=== PATIENT | female | born 1950 | race Two or more races ===

== ENCOUNTER 2023-10-17 16:00 | Emergency (ER) | payer OTHER ==
[~2023-10-17] VITALS: Ht 167.6 cm; Wt 90.9 kg
[2023-10-17 16:01] VITALS: BP 0/0; PULSE 0; RESP 0; TEMP 88.4; O2SAT 0
== END 2023-10-17 16:25 ==
LOC: EDSEX 16:00 → EDBD 16:00 → ER 16:00
DX: I46.9 Cardiac arrest, cause unspecified (principal); J96.90 Respiratory failure, unspecified, unspecified whether with hypoxia or hypercapnia
CPT/HCPCS: 36556; 92950; 99291